=== PATIENT | female | born 1985 | race African-American/Black ===

== ENCOUNTER 2017-03-08 21:29 | Emergency (ER) | payer OTHER ==
[2017-03-08 22:02] VITALS: BP 124/89; PULSE 98; TEMP 99.9; BMI 42.9
[2017-03-08] MEDS ORDERED: IBUPROFEN 400 MG TABLET (FP) PO ONE (22:27)
--- NOTE | 2017-03-08 22:39 | PDOC ---
History of Present Illness - General Chief Complaint: Wound Stated Complaint: PAIN RECTAL AREA Time Seen by Provider: 03/08/17 21:53 History Source: Patient Exam Limitations: No Limitations - History of Present Illness Initial Comments: 03/08/17 22:38 31-year-old female with no medical history presents to the emergency department complaining of right buttocks abscess 7 days. Patient states this started off as a size of a nickel increased over time. 3 days ago, patient noticed a malodorous/ purulent drainage coming from the right buttocks. Patient denies chest pain, shortness of breath, nausea/vomiting, abdominal pains, flank pains, urinary symptoms, difficulty having BMs. Timing/Duration: other (x4d) Past History - Past Medical History Allergies/Adverse Reactions: Allergies Allergy/AdvReac Type Severity Reaction Status Date / Time No Known Allergies Allergy Verified 03/08/17 22:01 Home Medications: Ambulatory Orders NK [No Known Home Medication] 03/08/17 - Suicide/Smoking/Psychosocial Hx Smoking History: Never smoked Have you smoked in the past 12 months: No Information on smoking cessation initiated: No Hx Alcohol Use: No Drug/Substance Use Hx: No Review of Systems - Review of Systems Able to Perform ROS?: Yes Comments:: 03/08/17 22:34 CONSTITUTIONAL: Absent: fever, chills, diaphoresis, generalized weakness, malaise, loss of appetite HEENT: Absent: rhinorrhea, nasal congestion, throat pain, throat swelling, difficulty swallowing, mouth swelling, ear pain, eye pain, visual Changes CARDIOVASCULAR: Absent: chest pain, loss of consciousness, palpitations, irregular heart rate, peripheral edema RESPIRATORY: Absent: cough, shortness of breath, dyspnea with exertion, orthopnea, wheezing, stridor, hemoptysis GASTROINTESTINAL: Absent: abdominal pain, abdominal distension, nausea, vomiting, diarrhea, constipation, melena, hematochezia Right buttock; mid central region: +purulent drainage/pain GENITOURINARY: Absent: dysuria, frequency, urgency, hesitancy, hematuria, flank pain, genital pain MUSCULOSKELETAL: Absent: myalgia, arthralgia, joint swelling SKIN: Absent: rash, itching, pallor HEMATOLOGIC/IMMUNOLOGIC: Absent: easy bleeding, easy bruising, lymphadenopathy, frequent infections Is the patient limited Hungarian proficient: No *Physical Exam - Vital Signs Last Vital Signs Temp Pulse Resp BP Pulse Ox 99.9 F H 98 H 20 124/89 100 03/08/17 22:01 03/08/17 22:01 03/08/17 22:01 03/08/17 22:01 03/08/17 22:01 - Physical Exam Comments: 03/08/17 22:34 GENERAL: Well developed, well nourished. Awake and alert. No acute distress. HEENT: Normocephalic, atraumatic. PERRLA, EOMI. No conjunctival pallor. Sclera are non- icteric. Moist mucous membranes. Oropharynx is clear. NECK: Supple. Full ROM. No JVD. Carotid pulses 2+ and symmetric, without bruits. No thyromegaly. No lymphadenopathy. CARDIOVASCULAR: Regular rate and rhythm. No murmurs, rubs, or gallops. Distal pulses are 2+ and symmetric. PULMONARY: No evidence of respiratory distress. Lungs clear to auscultation bilaterally. No wheezing, rales or rhonchi. Right buttock: central region: +Purulent drainage/ neg lymphangitis, +pain on palp ABDOMINAL: Soft. Non-tender. Non-distended. No rebound or guarding. No organomegaly. Normoactive bowel sounds. MUSCULOSKELETAL Normal range of motion at all joints. No bony deformities or tenderness. No CVA tenderness. EXTREMITIES: No cyanosis. No clubbing. No edema. No calf tenderness. SKIN: Warm and dry. Normal capillary refill. No rashes. No jaundice. Procedure: Right buttock Central region Betadine prep 1% lidocaine/8cc Iodoform packing Sterile gauze ABD dressing *DC/Admit/Observation/Transfer Diagnosis at time of Disposition: Abscess of buttock, right - Discharge Dispostion Condition at time of disposition: Stable Admit: No - Referrals Referrals: Saran Araiza MD [Staff Physician] - - Patient Instructions Printed Discharge Instructions: DI for Skin Abscess Additional Instructions: Warm compress as much as you can Warm soaks at night Take antibiotics as prescribed until completion Bactrim DS 1 tab by mouth twice a day Follow-up with your physician and the surgeon noted on your discharge: Dr. Araiza Return back to the emergency department for packing removal Return back to the emergency department for fever, chills, severe/worsening/ persistent symptoms, red streaks - Post Discharge Activity
[2017-03-08] MEDS ORDERED: CLINDAMYCIN 900 MG PREMIX IVPB 900 MG/50 ML BAG IVPB ONE ×2 (23:29→23:35)
== END 2017-03-09 00:12 | disposition home or self-care (01) ==
LOC: JER 21:29
PROC: 0J990ZZ Drainage of Buttock Subcutaneous Tissue and Fascia, Open Approach (ICD-10-PCS; principal; 2017-03-08)
PROC: 3E03329 Introduction of Other Anti-infective into Peripheral Vein, Percutaneous Approach (ICD-10-PCS; 2017-03-08)
DX: L02.31 Cutaneous abscess of buttock (principal)
CPT/HCPCS: 87070; 87186; 87205; 99282-25

== ENCOUNTER 2017-03-10 14:38 | Emergency (ER) | payer SELFPAY ==
[2017-03-10 14:49] VITALS: BP 142/78; PULSE 95; TEMP 98.5; BMI 35.7
--- NOTE | 2017-03-10 15:55 | PDOC ---
Suture Removal/Wound Check HPI - History of Present Illness Chief Complaint: Revisit,Wound Recheck Stated Complaint: FOLLOW UP Time Seen by Provider: 03/10/17 15:18 History Source: Yes: Patient Exam Limitations: Yes: No Limitations Treated at: [facility] Date of Last ED visit: 03/08/17 - Previous ED Treatment Type of procedure performed on last visit: Yes: I&D of Abscess Antibiotics Prescribed: Yes - Onset of Previous Treatment Comment:: 03/10/17 15:56 I&D check. Abscess draining well with no erythema, swelling, increased tenderness. Packing removed and abscess redressed. Patient denies fever, chills, nausea, vomiting, diarrhea. Advised patient to continue taking abx as prescribed and continue warm soaks with dressing changes 3-4x daily. Advised patient to f/u with surgeon as recommended previously and of signs and symptoms for return to ER; patient verbalized understanding and agrees to plan. Past History - Past Medical History Allergies/Adverse Reactions: Allergies Allergy/AdvReac Type Severity Reaction Status Date / Time Penicillins Allergy Verified 03/10/17 14:46 Home Medications: Ambulatory Orders Acetaminophen [Tylenol] 325 mg PO PRN 03/08/17 Clindamycin [Cleocin -] 300 mg PO TID #21 capsule 03/08/17 COPD: No - Immunization History Immunization Up to Date: Yes - Suicide/Smoking/Psychosocial Hx Smoking History: Never smoked Have you smoked in the past 12 months: No Hx Alcohol Use: No Drug/Substance Use Hx: No Substance Use Type: None *DC/Admit/Observation/Transfer Diagnosis at time of Disposition: Wound check, abscess - Discharge Dispostion Disposition: HOME Condition at time of disposition: Stable Admit: No - Referrals Referrals: Saran Araiza MD [Staff Physician] - - Patient Instructions Additional Instructions: Please continue taking the antibiotics as prescribed. Continue using warm soaks 3-4 times a day for 15 minutes each time and change the dressing. Follow up with the surgeon as directed by your previous provider. As discussed, if you develop any fever, chills, vomiting, diarrhea, or any new or worsening symptoms , please return to the ER. - Post Discharge Activity
== END 2017-03-10 15:51 | disposition home or self-care (01) ==
LOC: JERFT 14:38
DX: Z48.01 Encounter for change or removal of surgical wound dressing (principal)
CPT/HCPCS: 99281-25